=== PATIENT | male | born 1965 | race Caucasian/White ===

== ENCOUNTER 2017-09-01 16:01 | Emergency (ER) | payer MEDICAID ==
[~2017-09-01 16:01] MED LIST: DICL75 PO; TRAM50 PO
[2017-09-01 16:03] VITALS: BP 154/83; PULSE 79; RESP 14; TEMP 98.1; O2SAT 97
--- NOTE | 2017-09-01 17:01 | RADRPT ---
EXAM DATE/TIME: 09/01/2017 16:26 [facility] COMPARISON: No previous studies available for comparison. INDICATIONS : Chest pain, shortness of breath, and vomiting. MEDICAL HISTORY : None. SURGICAL HISTORY : None. ENCOUNTER: Initial ACUITY: 1 day PAIN SCORE: 9/10 LOCATION: middle chest. FINDINGS: PA and lateral views of the chest demonstrate the lungs to be symmetrically aerated without evidence of mass, infiltrate or effusion. The cardiomediastinal contours are unremarkable. Osseous structure s are intact. CONCLUSION: 1. No acute cardiopulmonary disease. Roscoe Vaughn MD on September 01, 2017 at 16:58 Board Certified Radiologist. This report was verified electronically.
[2017-09-01 17:58] LABS: AUTOMATED NEUTROPHIL # 8.1 TH/MM3 (1.8-7.7); BASOPHIL # 0.1 TH/MM3 (0-0.2); BASOPHIL % 0.6 % (0.0-2.0); EOSINOPHIL # 0.1 TH/MM3 (0-0.4); EOSINOPHIL % 1.1 % (0.0-4.0); HEMATOCRIT 42.5 % (39.0-51.0); LYMPH % 14.2 % (9.0-44.0); LYMPHOCYTE # 1.4 TH/MM3 (1.0-4.8); MEAN CELL VOLUME 87.9 FL (80.0-100.0); MEAN CORPUSCULAR HEMOGLOBIN 30.9 PG (27.0-34.0); MEAN CORPUSCULAR HGB CONC 35.2 % (32.0-36.0); MEAN PLATELET VOLUME 7.9 FL (7.0-11.0); MONO % 2.5 % (0.0-8.0); MONOCYTE # 0.2 TH/MM3 (0-0.9); NEUT % 81.6 % (16.0-70.0); PLATELET COUNT 265 TH/MM3 (150-450); RED BLOOD COUNT 4.84 MIL/MM3 (4.50-5.90); RED CELL DISTRIBUTION WIDTH 13.7 % (11.6-17.2); WHITE BLOOD COUNT 9.9 TH/MM3 (4.0-11.0)
[2017-09-01 18:01] LABS: PROTHROMBIN TIME - PATIENT 10.3 SEC (9.8-11.6)
[2017-09-01 18:08] LABS: BICARBONATE 28.7 MEQ/L (21.0-32.0); CALCIUM 9.3 MG/DL (8.5-10.1); CREATININE 1.15 MG/DL (0.60-1.30)
--- NOTE | 2017-09-01 18:11 | RADRPT ---
EXAM DATE/TIME: 09/01/2017 17:49 [facility] COMPARISON: No previous studies available for comparison. INDICATIONS : Right leg swelling. MEDICAL HISTORY : Chronic obstructive pulmonary disease. Diabetes. SURGICAL HISTORY : None. ENCOUNTER: Initial ACUITY: 1 week PAIN SCORE: 6/10 LOCATION: Right leg. TECHNIQUE: Venous ultrasound of the leg was performed from the inguinal ligament to the proximal calf. Real-lazaro e, color Doppler and spectral tracing, compression and augmentation techniques were used. FINDINGS: There is normal compressibility of the deep venous system from the inguinal region to the proximal ca lf. No echogenic clot is seen in the lumen of the common femoral, femoral, popliteal, and posterior tibial veins. There is a normal response of the venous system to proximal and distal augmentation an d respiration. Prominent right groin lymph node measures 1.8 x 1.9 x 0.8 cm and clearly contains a fatty hilum. CONCLUSION: 1. No DVT. 2. Reactive right inguinal lymph node measuring 1.9 cm in diameter. Morgan Rios MD on September 01, 2017 at 18:07 Board Certified Radiologist. This report was verified electronically.
[2017-09-01] MEDS ORDERED: METF500T PO (19:14)
[2017-09-01] MEDS ORDERED: ALLO100T PO (19:14)
[2017-09-01 19:21] VITALS: BP 169/90; PULSE 76; RESP 16; O2SAT 98
[2017-09-01] MEDS ORDERED: cefTRIAXone INJ 1,000 MG in SODIUM CHLORIDE 0.9% INJ 100 ML IV ONE (19:45)
--- NOTE | 2017-09-01 19:51 | PD ---
Physical Exam Narrative General: The patient is a well-developed well-nourished male in no acute. Head and Neck exam: Head is normocephalic atraumatic. Eyes: Pupils are equal round and reactive to light. Nose: Midline septum with pink mucous membranes Mouth: Dentition unremarkable. Moist mucus membranes. Posterior oropharynx is not erythematous. No tonsillar hypertrophy. Uvula midline. Airway patent. Neck: No palpable lymphadenopathy. No nuchal rigidity. No thyromegaly. Cardiovascular: Regular rate and rhythm without murmurs, gallops, or rubs. Lungs: Clear to auscultation bilaterally. No wheezes, rhonchi, or rales. Abdomen: Soft, without tenderness to palpation in all 4 quadrants of the abdomen. No guarding, rebound, or rigidity. N normal bowel sounds are audible. No tenderness on palpation of McBurney's point. Negative Redmond sign. Extremities: No clubbing or cyanosis. The patient has trace pedal edema bilateral lower extremities with skin erythema bilateral lower extremities and healing noted. Patient has a postoperative scar in place along the right foot, great toe. This appears to have healed well. There is no skin breakdown at the site and no drainage noted. The patient has no pustules. The patient reports having right calf tenderness on palpation. The patient has a positive Homans sign. 2 + pulses in all 4 extremities. Neurologic Exam: Grossly nonfocal Skin Exam: Intact skin that is warm and dry. Data Data Last Documented VS Vital Signs Date Time Temp Pulse Resp B/P (MAP) Pulse Ox O2 Delivery O2 Flow Rate FiO2 09/01/17 19:21 76 16 169/90 (116) 98 Room Air 09/01/17 16:03 98.1 Orders Orders Complete Blood Count With Diff (09/01/17 16:15) Basic Metabolic Panel (Bmp) (09/01/17 16:15) B-Type Natriuretic Peptide (09/01/17 16:15) Blood Culture (09/01/17 16:15) Electrocardiogram (09/01/17 16:15) Us Leg Venous Doppler (09/01/17 ) Coag Profile (09/01/17 16:15) Chest, Pa & Lat (09/01/17 16:15) Ceftriaxone Inj (Rocephin Inj) (09/01/17 19:45) Foot, Complete ([id number]) (09/01/17 ) Labs Laboratory Tests Test 09/01/17 17:20 White Blood Count 9.9 TH/MM3 Red Blood Count 4.84 MIL/MM3 Hemoglobin 15.0 GM/DL Hematocrit 42.5 % Mean Corpuscular Volume 87.9 FL Mean Corpuscular Hemoglobin 30.9 PG Mean Corpuscular Hemoglobin Concent 35.2 % Red Cell Distribution Width 13.7 % Platelet Count 265 TH/MM3 Mean Platelet Volume 7.9 FL Neutrophils (%) (Auto) 81.6 % Lymphocytes (%) (Auto) 14.2 % Monocytes (%) (Auto) 2.5 % Eosinophils (%) (Auto) 1.1 % Basophils (%) (Auto) 0.6 % Neutrophils # (Auto) 8.1 TH/MM3 Lymphocytes # (Auto) 1.4 TH/MM3 Monocytes # (Auto) 0.2 TH/MM3 Eosinophils # (Auto) 0.1 TH/MM3 Basophils # (Auto) 0.1 TH/MM3 CBC Comment DIFF FINAL Differential Comment Prothrombin Time 10.3 SEC Prothromb Time International Ratio 1.0 RATIO Activated Partial Thromboplast Time 28.1 SEC Blood Urea Nitrogen 11 MG/DL Creatinine 1.15 MG/DL Random Glucose 137 MG/DL Calcium Level 9.3 MG/DL Sodium Level 138 MEQ/L Potassium Level 3.5 MEQ/L Chloride Level 103 MEQ/L Carbon Dioxide Level 28.7 MEQ/L Anion Gap 6 MEQ/L Estimat Glomerular Filtration Rate 67 ML/MIN B-Type Natriuretic Peptide 37 PG/ML MDM Medical Record Reviewed: Yes Supervised Visit with RUTHIE: No Narrative Course I, Dr. Sumner, have reviewed the advance practice practitioner's documentation and am in agreement, met with the patient face to face, made the diagnosis, and the medical decision making was done by me. The patient was initially evaluated by Maia, the RUTHIE. Please see their complete history and physical. *My assessment and Findings: The patient presents with history of increased swelling, pain, redness from the foot radiating up to the knee. The patient reports that in June he [place] Reports that he has a follow-up appointment scheduled with his surgeon from September. Patient reports that he was out in the sun recently and required a sunburn to bilateral lower legs. He reports that the redness seemed to be improving and then suddenly became worse again in the right leg with increased swelling in the right leg. During the course of the patient's emergency department visit, the patient's history, examination, and differential diagnosis were reviewed with the patient. The patient was placed on a groundwater monitoring technician with oximetry and frequent blood pressure monitoring. The patient had IV access obtained and blood work sent for analysis. The patient was initially provided Rocephin IV. The patient's laboratory studies were reviewed and remarkable for a white count of 9.9, hemoglobin 15, platelets 265 with 81.6 neutrophils, basic metabolic profile is remarkable for glucose of 137, BNP 37, PT 10.3, PTT 28.1. Radiology studies were reviewed and remarkable for a chest x-ray shows no acute cardiopulmonary disease, right foot x-ray reveals hardware in place, no other acute bony abnormality. Ultrasound of the right lower extremity shows no evidence of DVT, reactive lymph node in the right inguinal area. The patient is resting comfortably and feels better, is alert and in no distress. The patient's results and examination findings were discussed with the patient. The repeat examination is unremarkable and benign. The history, exam, diagnostic testing, and current condition do not suggest any significant pathology to warrant further testing, continued ED treatment, admission, or surgical evaluation at this point. The vital signs have been stable. The patient does not have uncontrollable pain, intractable vomiting, or other significant symptoms. The patient's condition is stable and appropriate for discharge. The patient will pursue further outpatient evaluation with a primary care physician or other designated or consulting physician as indicated in the discharge instructions. The patient expressed understanding and was agreeable with this plan. Diagnosis Primary Impression: Erysipelas of lower extremity Scripts Cephalexin (Keflex) 500 Mg Cap 500 MG PO Q8H for Infection for 7 Days, #21 CAP 0 Refills Prov: Melissa Moreno 09/01/17 Edda Sumner MD Sep 01, 2017 19:51
[2017-09-01] MEDS ORDERED: CEPH-460 PO (20:08)
--- NOTE | 2017-09-01 20:12 | PD ---
HPI Chief Complaint: Edema Time Seen by Provider: 19:14 Travel History International Travel<30 days: No Contact w/Intl Traveler<30days: No Traveled to known affect area: No History of Present Illness HPI 51-year-old male with history of COPD, diabetes, and gout presents emergency department complaining of right lower extremity swelling and pain for 2-3 days. States that his leg has been swollen and red and is concerned that his bunion surgery and June has caused this problem. States that he had bunion surgery and was due to follow-up with his integrity specialist in July however, he has had insurance issues and has been unable to follow-up with images or with a integrity specialist. Patient says that he has occasional numbness from the ankle to the knee but believes this is related to the tourniquet that was applied during his bunion surgery. He denies fevers but says she he has chills. States that he was in the sun and developed a sunburn on his lower extremities. Says that this redness went away but came back a day or 2 ago. Denies chest pain, shortness breath, abdominal pain. PFSH Past Medical History Diabetes: Yes Patient Takes Glucophage: Yes Diminished Hearing: No Gout: Yes Respiratory: Yes (COPD) Tetanus Vaccination: < 5 Years Influenza Vaccination: No Past Surgical History Other Surgery: Yes (right foot 07-10-2017) Social History Alcohol Use: No Tobacco Use: Yes Allergies-Medications (Allergen,Severity, Reaction): Coded Allergies: No Known Allergies (Unverified , 09/01/17) Reported Meds & Prescriptions Reported Meds & Active Scripts Active Keflex (Cephalexin) 500 Mg Cap 500 Mg PO Q8H 7 Days Reported Allopurinol 100 Mg Tab 100 Mg PO DAILY Metformin (Metformin HCl) 500 Mg Tab 500 Mg PO BIDPC Review of Systems Except as stated in HPI: all other systems reviewed are Neg Physical Exam Narrative GENERAL: Well-nourished in no apparent distress SKIN: Focused skin assessment warm/dry. Bilateral lower extremities HEAD: Atraumatic. Normocephalic. EYES: Pupils equal and round. No scleral icterus. No injection or drainage. ENT: No nasal bleeding or discharge. Mucous membranes pink and moist. NECK: Trachea midline. No JVD. CARDIOVASCULAR: Regular rate and rhythm. No murmur appreciated. RESPIRATORY: No accessory muscle use. Clear to auscultation. Breath sounds equal bilaterally. GASTROINTESTINAL: Abdomen soft, non-tender, nondistended. Hepatic and splenic margins not palpable. MUSCULOSKELETAL: No obvious deformities. No clubbing. No cyanosis. No edema. NEUROLOGICAL: Awake and alert. No obvious cranial nerve deficits. Motor grossly within normal limits. Normal speech. PSYCHIATRIC: Appropriate mood and affect; insight and judgment normal. Data Data Last Documented VS Vital Signs Date Time Temp Pulse Resp B/P (MAP) Pulse Ox O2 Delivery O2 Flow Rate FiO2 09/01/17 21:50 09/01/17 19:21 76 16 98 Room Air 09/01/17 16:03 98.1 Orders Orders Complete Blood Count With Diff (09/01/17 16:15) Basic Metabolic Panel (Bmp) (09/01/17 16:15) B-Type Natriuretic Peptide (09/01/17 16:15) Blood Culture (09/01/17 16:15) Electrocardiogram (09/01/17 16:15) Us Leg Venous Doppler (09/01/17 ) Coag Profile (09/01/17 16:15) Chest, Pa & Lat (09/01/17 16:15) Ceftriaxone Inj (Rocephin Inj) (09/01/17 19:45) Foot, Complete ([id number]) (09/01/17 ) Ed Discharge Order (09/01/17 21:24) Labs Laboratory Tests Test 09/01/17 17:20 White Blood Count 9.9 TH/MM3 Red Blood Count 4.84 MIL/MM3 Hemoglobin 15.0 GM/DL Hematocrit 42.5 % Mean Corpuscular Volume 87.9 FL Mean Corpuscular Hemoglobin 30.9 PG Mean Corpuscular Hemoglobin Concent 35.2 % Red Cell Distribution Width 13.7 % Platelet Count 265 TH/MM3 Mean Platelet Volume 7.9 FL Neutrophils (%) (Auto) 81.6 % Lymphocytes (%) (Auto) 14.2 % Monocytes (%) (Auto) 2.5 % Eosinophils (%) (Auto) 1.1 % Basophils (%) (Auto) 0.6 % Neutrophils # (Auto) 8.1 TH/MM3 Lymphocytes # (Auto) 1.4 TH/MM3 Monocytes # (Auto) 0.2 TH/MM3 Eosinophils # (Auto) 0.1 TH/MM3 Basophils # (Auto) 0.1 TH/MM3 CBC Comment DIFF FINAL Differential Comment Prothrombin Time 10.3 SEC Prothromb Time International Ratio 1.0 RATIO Activated Partial Thromboplast Time 28.1 SEC Blood Urea Nitrogen 11 MG/DL Creatinine 1.15 MG/DL Random Glucose 137 MG/DL Calcium Level 9.3 MG/DL Sodium Level 138 MEQ/L Potassium Level 3.5 MEQ/L Chloride Level 103 MEQ/L Carbon Dioxide Level 28.7 MEQ/L Anion Gap 6 MEQ/L Estimat Glomerular Filtration Rate 67 ML/MIN B-Type Natriuretic Peptide 37 PG/ML MDM Medical Decision Making Medical Screen Exam Complete: Yes Emergency Medical Condition: Yes Differential Diagnosis Cellulitis, erysipelas, DVT, CHF exacerbation Narrative Course 51-year-old male with history of COPD, diabetes, and gout presents emergency department complaining of right lower extremity swelling and pain for 2-3 days. States that his leg has been swollen and red and is concerned that his bunion surgery and June has caused this problem. States that he had bunion surgery and was due to follow-up with his integrity specialist in July however, he has had insurance issues and has been unable to follow-up with images or with a integrity specialist. Patient says that he has occasional numbness from the ankle to the knee but believes this is related to the tourniquet that was applied during his bunion surgery. He denies fevers but says she he has chills. States that he was in the sun and developed a sunburn on his lower extremities. Says that this redness went away but came back a day or 2 ago. Denies chest pain, shortness breath, abdominal pain. Vital signs stable. Physical exam findings RLE edema with erythema, well demarkated Ceftriazone 1g administered IV EKG without STEMI changes. Laboratory Tests Test 09/01/17 17:20 White Blood Count 9.9 TH/MM3 Red Blood Count 4.84 MIL/MM3 Hemoglobin 15.0 GM/DL Hematocrit 42.5 % Mean Corpuscular Volume 87.9 FL Mean Corpuscular Hemoglobin 30.9 PG Mean Corpuscular Hemoglobin Concent 35.2 % Red Cell Distribution Width 13.7 % Platelet Count 265 TH/MM3 Mean Platelet Volume 7.9 FL Neutrophils (%) (Auto) 81.6 % Lymphocytes (%) (Auto) 14.2 % Monocytes (%) (Auto) 2.5 % Eosinophils (%) (Auto) 1.1 % Basophils (%) (Auto) 0.6 % Neutrophils # (Auto) 8.1 TH/MM3 Lymphocytes # (Auto) 1.4 TH/MM3 Monocytes # (Auto) 0.2 TH/MM3 Eosinophils # (Auto) 0.1 TH/MM3 Basophils # (Auto) 0.1 TH/MM3 CBC Comment DIFF FINAL Differential Comment Prothrombin Time 10.3 SEC Prothromb Time International Ratio 1.0 RATIO Activated Partial Thromboplast Time 28.1 SEC Blood Urea Nitrogen 11 MG/DL Creatinine 1.15 MG/DL Random Glucose 137 MG/DL Calcium Level 9.3 MG/DL Sodium Level 138 MEQ/L Potassium Level 3.5 MEQ/L Chloride Level 103 MEQ/L Carbon Dioxide Level 28.7 MEQ/L Anion Gap 6 MEQ/L Estimat Glomerular Filtration Rate 67 ML/MIN B-Type Natriuretic Peptide 37 PG/ML Last Impressions Chest X-Ray 09/01/17 1615 Signed Impressions: Service Date/Time: Friday, September 01, 2017 16:26 - CONCLUSION: 1. No acute cardiopulmonary disease. Roscoe Vaughn MD Lower Extremity Ultrasound 09/01/17 0000 Signed Impressions: Service Date/Time: Friday, September 01, 2017 17:49 - CONCLUSION: 1. No DVT. 2. Reactive right inguinal lymph node measuring 1.9 cm in diameter. Morgan Rios MD Foot X-Ray 09/01/17 0000 Signed Impressions: Service Date/Time: Friday, September 01, 2017 19:55 - CONCLUSION: 1. Surgical plate and screw fixation across first MTP. No acute bony abnormality. Memo Yan MD No DVT on ultrasound. Lymph node enlargement enlargement suggestive of cellulitis versus erysipelas of the lower extremity. No leukocytosis, BNP 37. Pt will be discharged with Keflex, advised to follow up with his PCP this week. Follow up with podiatry as previously scheduled. If symptoms persist or worsen return to the emergency room. Diagnosis Primary Impression: Erysipelas of lower extremity Referrals: Primary Care Physician Additional Instructions: Take all medications as prescribed. If your symptoms persist or worsen return to the emergency department. Keep the legs elevated to reduce swelling. Scripts Cephalexin (Keflex) 500 Mg Cap 500 MG PO Q8H for Infection for 7 Days, #21 CAP 0 Refills Prov: Melissa Moreno 09/01/17 Disposition: 01 DISCHARGE HOME Condition: Stable Melissa Moreno Sep 01, 2017 20:12
--- NOTE | 2017-09-01 20:27 | RADRPT ---
EXAM DATE/TIME: 09/01/2017 19:55 [facility] COMPARISON: No previous studies available for comparison. INDICATIONS : Right foot and lower leg red, swelling and peeling, post sunburn. Patient having right lower leg and foot cramps past 2 weeks. MEDICAL HISTORY : Chronic obstructive pulmonary disease. Diabetes, Gout SURGICAL HISTORY : Bunionectomy right foot (07/06) ENCOUNTER: Initial ACUITY: 3 days PAIN SCORE: 5/10 LOCATION: Right Foot FINDINGS: Three view examination of the right foot demonstrates fixation across the first MCP. No acute fractur e. No dislocation. CONCLUSION: 1. Surgical plate and screw fixation across first MTP. No acute bony abnormality. Memo Yan MD on September 01, 2017 at 20:23 Board Certified Radiologist. This report was verified electronically.
--- NOTE | 2017-09-02 18:23 | EKG ---
Date Performed: 09/01/2017 Time Performed: 17:21:17 PTAGE: 51 years EKG: Sinus rhythm NORMAL ECG NO PREVIOUS TRACING DOCTOR: Crow Busby Interpretating Date/Time 09/02/2017 18:21:09
== END 2017-09-01 21:51 | disposition home or self-care (01) ==
LOC: MERGE 16:01 → NEPC 16:01
DX: A46 Erysipelas (principal); E11.8 Type 2 diabetes mellitus with unspecified complications; J44.9 Chronic obstructive pulmonary disease, unspecified; Z72.0 Tobacco use
CPT/HCPCS: 71046; 73630; 80048; 83880; 85025; 85610; 85730; 87040; 93005; 93971; 96374; 99285; J0696